=== PATIENT | female | born 1975 | race Caucasian/White ===

== ENCOUNTER 2019-08-20 04:00 | Emergency (ER) | payer OTHER, SELFPAY ==
[2019-08-20 04:00] VITALS: BP 147/104; PULSE 97; RESP 18; TEMP 36.5; O2SAT 97; BMI 30.7
[2019-08-20] MEDS: Diphth,Pertuss(Acell),Tet Vac 0.5 ML Vial IM (04:27)
--- NOTE | 2019-08-20 05:11 | ED.VIS.INJ ---
History of Present Illness Chief Complaint: Laceration Narrative: Patient presenting for evaluation secondary to wound to the right hand. 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 She reports that she went to reach for the milk or nozzle once again, and it was ripped across her right hand where she suffered a laceration. Patient reports sharp pain, bleeding that was controlled by pressure. She does report that she irrigated it prior to arrival. She is unsure of her last tetanus shot. Patient states that a couple of days prior to this she was kicked in the forearm of the same hand by another cow. She reports that she has some mild pain associated with that, and some numbness in her ring and small digits on that hand. She is right-hand dominant. She denies any medication allergies. Review of systems otherwise negative. Past Medical History - Allergies and Home Meds Allergies/Adverse Reactions: Allergies No Known Allergies Allergy (Verified 08/20/19 04:05) Primary Care Physician: NOT,DEFINED [Primary Care Provider] - Past Medical History: None Smoking Status: Current every day smoker Review of Systems All systems negative except as indicated - Charge me at 5 in the morning Skin: Reports: Wounds Neurological: Reports: Parasthesia Physical Exam Vital Signs/Narrative: Vital Signs Temp Pulse Resp BP Pulse Ox 08/20/19 04:00 97.7 F L 97 18 147/104 H 97 Inital Vital Signs reviewed: Yes General: Well nourished, Well developed Head: Normocephalic, Atraumatic Eyes: Perrl, EOMI ENT: TM's clear, No hemotympanum or drainage, No trauma Neck: Nontender, Full ROM Cardiovascular: Regular rate, Regular rhythm, No murmurs Respiratory: No distress, CTA bilaterally, Chest nontender Abdomen: Soft, Nontender, Nondistended, Normal bowel sounds Back: Nontender Extremeties: Examination of the patient's right upper extremity shows evidence of contusion over the volar surface of the patient's forearm with soft compartments and normal range of motion of the shoulder elbow and wrist. Examination of the hand shows a laceration in the webspace between the thumb and the index finger extending onto the surface of the palm measuring about 4 cm. This is full-thickness. Normal flexion and extension of the thumb and index fingers, normal abduction and adduction of the thumb. Normal capillary refill, two-point discrimination. Skin: Normal color, No rash Neurological: Alert, Oriented x3, Cranial nerves II-XII grossly intact, Normal Strength, Normal Sensation Psychological: Normal affect Diagnostic/Tx/Re-eval - Medical Decision Making Patient presented secondary to a laceration of the hand. Laceration was addressed as noted in the procedure note. As noted in the procedure note, upon exploration of the wound I was able to visualize the flexor tendon of the patient's index finger, but on full exploration with full range of motion of the finger I was not able to visualize any defects in this. Wound was closed adequately. Due to the proximity of the laceration to the flexor tendon I will place the patient on Keflex. Laceration No standard instances Length: 4 ft - Wound was explored through full range of motion, was scrubbed with Shdeloris-Clens and was irrigated copiously with saline. I was able to visualize the flexor tendon of the index finger, but there does not appear to be any violation of that tendon, and no evidence of tendon laceration. Depth: Skin Shape: Linear Prep: Sterile Conditions, Shure-Clens Laceration Repair: Lidocaine with epi Irrigated (ml): 250 Number of Sutures/[place]: 7 Stitch Description: Ethilon, 4-0, - - Simple interrupted Disposition: Home ED Disposition - Plan for ED Patient: Disposition: Home or Assisted Living Diagnosis: Laceration of right hand, Contusion of right forearm Instructions: LACERATION, All Prescriptions: Cephalexin [Keflex] 500 mg PO Q6 #40 cap Prescription Printed Referrals: [facility] [GROUP OF PHYSICIANS] - 10-14 Days suture removal
[2019-08-20] MEDS: BACITRACIN 15 GM Tube 1 APPLIC TOPICAL (05:17)
[2019-08-20] MEDS: Cephalexin 250 MG Capsule 500 MG PO (05:17)
[2019-08-20 05:23] VITALS: BP 128/92; PULSE 80; O2SAT 95
== END 2019-08-20 05:24 | disposition home or self-care (01) ==
LOC: ED 05:23
PROVIDERS: Emergency Provider Emergency Medicine
DX: S61.411A Laceration without foreign body of right hand, initial encounter (principal); S50.11XA Contusion of right forearm, initial encounter; W45.8XXA Other foreign body or object entering through skin, initial encounter; W22.8XXA Striking against or struck by other objects, initial encounter; Y93.K2 Activity, milking an animal; Y92.79 Other farm location as the place of occurrence of the external cause; Y99.0 Civilian activity done for income or pay; F17.200 Nicotine dependence, unspecified, uncomplicated
CPT/HCPCS: 12002; 90715; 99284

== ENCOUNTER 2019-12-27 14:42 | Emergency (ER) | payer SELFPAY ==
[2019-09-01 11:16] VITALS: BMI 30.7
[2019-12-27 14:43] VITALS: BP 119/81; PULSE 85; RESP 16; TEMP 37.1; O2SAT 97; BMI 29.9
--- NOTE | 2019-12-27 15:07 | RAD_ITS ---
STUDY: X-RAY - RIGHT FOOT CLINICAL: Female, 44 years old. GRAYNESS IN FIRST DIGIT. NUMBNESS IN FOOT. SPRAINED ANKLE X1 MONTH AGO. TECHNIQUE: 3 view(s) of the foot. COMPARISON: None. FINDINGS: Normal talus, calcaneus, and tarsal bones. Normal visualized subtalar, talonavicular, calcaneocuboid, tarsal and tarsometatarsal articulations. Normal metatarsi. Normal metatarsophalangeal joint of the great toe. There is a bipartite tibial sesamoid. Normal interphalangeal joint of the great toe. Normal phalanges of the great toe. Normal second through fifth metatarsophalangeal joints. Normal interphalangeal joints and phalanges of the lesser toes. Soft tissue swelling. RAD/Foot min 3 Views IMPRESSION: Soft tissue swelling. Electronically Signed: Jason Bishop, at 15:39 EST , Service support ,
--- NOTE | 2019-12-27 15:09 | ED.DCSUM_ITS ---
History of Present Illness Chief Complaint: Lower Extremity Injury Narrative: Patient presents emergency department for 1 week of a espinosa right great toe. 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 She notes she has had some discomfort in the toe for the same week. She states she is not treated for any significant medical problems. No previous evaluation for this. She does not have a primary care physician. She is a smoker. No known trauma to the digit or foot. Past Medical History - Allergies and Home Meds Allergies/Adverse Reactions: Allergies No Known Allergies Allergy (Verified 09/01/19 11:14) Primary Care Physician: Bill Martinez DPM [STAFF PHYSICIAN] - As soon as possible Smoking Status: Current every day smoker Review of Systems General: Denies: Chills, Fever, Sweats Eyes: Denies: Visual changes - bilaterally, Diplopia ENT: Denies: Rhinorrhea, Sore throat Cardiovascular: Denies: Chest pain, Palpitations Respiratory: Denies: Dyspnea, Cough, Dyspnea on exertion Gastrointestinal: Denies: Abdominal pain, Nausea, Vomiting, Diarrhea, Melena, Hematochezia Genitourinary: Denies: Dysuria, Hematuria, Frequency Musculoskeletal: Reports: - - See history of present illness. Denies: Back pain, Extremity Pain Skin: Reports: Rash - See history of present illness. Denies: Wounds Neurological: Denies: Headache, Weakness, Numbness Physical Exam Vital Signs/Narrative: Vital Signs Temp Pulse Resp BP Pulse Ox 12/27/19 14:43 98.8 F 85 16 119/81 H 97 Inital Vital Signs reviewed: Yes General: Well nourished, Well developed, No Acute Distress Head: Normocephalic, Atraumatic Eyes: Perrl, EOMI ENT: Moist mucous membranes, No rhinorrhea Neck: Supple, Nontender Cardiovascular: Regular rate, Regular rhythm, No murmurs Respiratory: No distress, CTA bilaterally, Chest nontender Abdomen: Soft, Nontender, Nondistended, Normal bowel sounds Back: Nontender, Normal Inspection Extremities: Nontender, No edema, - - The heel and first MTP. Plantar skin as well as the skin on the plantar surface of the distal great toe is thickened and dry with deep cracks. Most dirt in the cracks can be removed with simple scrubbing. There is onychomycosis of approximately 25% of the great toe. With rubbing the toe turns red. No significant tenderness. No deformities. Skin: Normal color, No rash Neurological: Alert, Oriented x3, Cranial nerves II-XII grossly intact, Normal Strength, Normal Sensation Psychological: Normal affect, Normal Mood Diagnostic/Tx/Re-eval - Medical Decision Making Series of the foot were negative for fracture or obvious acute pathology. Blood sugar was obtained and was 109. I spoke with Dr. Martinez. Patient will exfoliate the dry skin daily and moisturize. For the onychomycosis we will prescribe ciclopirox 8% solution BID. She will follow-up in the office. ED Disposition - Plan for ED Patient: Disposition: Home or Assisted Living Diagnosis: Onychomycosis of great toe Instructions: Onychomycosis Prescriptions: Ciclopirox Olamine [Ciclopirox] 1 applicatio TP BID #500 suspension Transmission Status: Pending to [facility] Referrals: Bill Martinez DPM [STAFF PHYSICIAN] - As soon as possible Additional Instructions: You need to use and an exfoliative scrub on the skin that is thickened and dry. Moisturize the skin daily. You will need further treatment. Please follow-up with podiatry (referral to Dr. Martinez's group).
[2019-12-27 15:36] LABS: Bedside Glucose 109 mg/dL (70-110)
[2019-12-27 15:49] VITALS: RESP 16
== END 2019-12-27 16:04 | disposition home or self-care (01) ==
PROVIDERS: Emergency Provider Emergency Medicine
DX: B35.1 Tinea unguium (principal); F17.200 Nicotine dependence, unspecified, uncomplicated
CPT/HCPCS: 73630; 82962; 99282

== ENCOUNTER 2021-07-24 12:38 | Emergency (ER) | payer SELFPAY ==
[2021-07-24 12:39] VITALS: BP 140/93; PULSE 94; RESP 18; TEMP 36.1; O2SAT 99; BMI 28.3
--- NOTE | 2021-07-24 14:47 | RAD_ITS ---
STUDY: X-RAY - LUMBAR SPINE REASON FOR EXAM: Female, 45 years old. Injury/Pain TECHNIQUE: 2 view(s) of the lumbar spine were obtained. COMPARISON: None FINDINGS: Normal lumbar lordosis. There is no substantial scoliosis. Grade 1 anterior listhesis of L5 on S1 with spondylolysis of the pars intraarticularis of the L5 vertebrae. Normal vertebral bodies and endplates. Normal disc space heights. Surgical clips are seen in the right upper quadrant. Calcified phleboliths are seen in the pelvis. RAD/Lumbar Spine 2 or 3 Views IMPRESSION: Grade 1 anterior listhesis of L5 on S1 with spondylolysis of the pars interarticularis at the L5 vertebrae. Electronically Signed: Jason Bishop MD at 15:17 EDT , Service support ,
--- NOTE | 2021-07-24 14:47 | RAD_ITS ---
STUDY: X-RAY - CERVICAL SPINE REASON FOR EXAM: Female, 45 years old. Injury/Pain TECHNIQUE: 3 view(s) of the cervical spine were obtained. COMPARISON: None FINDINGS: Normal anterior atlantoaxial articulation. Normal odontoid process. There is straightening of the normal cervical lordosis. Mild anterior spondylosis and disc space narrowing at the C5-C6 and C7 levels. Normal visualized intervertebral neuroforamina. The soft tissue structures are unremarkable. RAD/Cerv Spine 2 or 3 Views IMPRESSION: Mild degree of disc space narrowing and spondylosis at the C5-C6 and C6-C7 levels. Electronically Signed: Jason Bishop MD at 15:16 EDT , Service support ,
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
== END 2021-07-24 16:28 | disposition home or self-care (01) ==
PROVIDERS: Emergency Provider Emergency Medicine
DX: M54.2 Cervicalgia (principal); M54.5 Low back pain; F17.210 Nicotine dependence, cigarettes, uncomplicated
CPT/HCPCS: 72040; 72100; 99283